=== PATIENT | male | born 1955 | race Caucasian/White ===

== ENCOUNTER → 2020-05-11 08:58 | Outpatient (CLI) | payer BC | END | disposition home or self-care (01) | LOC: D.HCCARDIO 08:58 | PROVIDERS: ATTEND Internal Medicine Cardiovascular Disease | DX: I25.10 Atherosclerotic heart disease of native coronary artery without angina pectoris (principal) ==

== ENCOUNTER 2020-05-25 06:39 | Day surgery (SDC) | payer BC ==
[~2020-05-25] VITALS: Ht 170.2 cm; Wt 117.3 kg
--- NOTE | ~2020-05-25 | HEMODYNAMI ---
PATIENT:XUAN SHERWOOD MEDICAL RECORD: [id number] : 59 LOCATION:D.CAT ADMISSION DATE: 05/25/20 Generatedon:05/25/20208:30 Patient name: XUAN SHERWOOD Patient #: [id number] SSN: DO B: 1955 Date of study: 05/25/2020 Page: Of Hemodynamic Procedure Report Patient Data Patient Demographics Procedure consent was obtained First Name: XUAN Gender: Male Last Name: PRESLEY : 1955 Middle Initial: M Age: 64 year(s) Patient #: [id number] Race: Unknown Additional ID: [id number] Contact details [address]: [address] [place] [address] State: [place] City: [place] Zip code: [address] Past Medical History Performed procedures and imaging results Date Procedure Procedure Results Comments Stress testing Positive->Intermediate with SPECT MPI risk History of disease Date Diagnosis Comments CAD Allergies: No known allergies Admission Admission Data Admission Date: 05/25/2020 Admission Time: 6:39 Arrival Date: 05/25/2020 Arrival Time: 0:00 Height (in.): 66.93 BSA: 2.25 (m2) Height (cm.): 170 BMI: 40.48 (kg/m2) Weight (lbs.): 257.94 Weight (kg.): 117 Lab Results Lab Result Date: 05/25/2020 Lab Result Time: 0:00 Biochemistry Name Units Result Min Max BUN mg/dl 16 --(---*)-- 7 18 Creatinine mg/dl 0.9 --(-*--)-- 0.6 1.3 eGFR ml/min 90 --(*---)-- 90 120 NONAFRICAN CBC Name Units Result Min Max Hematocrit % 46.1 --(-*--)-- 42 54 Hemoglobin g/dl 15.3 --(-*--)-- 13.5 17.5 Procedure Procedure Types Cath Procedure Diagnostic Procedure C LHC w/Coronaries Sedation Charges Moderate Sedation up to 15 minutes Procedure Description Procedure Date Procedure Date: 05/25/2020 Procedure Start Time: 8:13 Procedure End Time: 8:27 Procedure Staff Name Function Alex Gonzalez MD Performing Physician Ken Torres RN Nurse Liudmila Kincaid RT Scrub Maggieklarissa Brown RT Monitor Procedure Data Cath Procedure Fluoroscopy Diagnostic fluoroscopy Total fluoroscopy Time: 2.6 time: 2.6 min min Diagnostic fluoroscopy Total fluoroscopy dose: 710 dose: 710 mGy mGy Contrast Material Contrast Material Type Amount (ml) Isovue 300 67 Entry Location Entry Primary Successful Side Size Upsize Upsize Entry Closure Seals ccessful Closure Location (Fr) 1 (Fr) 2 (Fr) Remarks Device Remarks Radial Right 6 Fr Mechanical artery Short Compression Estimated blood loss: 5 ml Diagnostic catheters Device Type Used For End Catheter Placement DIAGNOSTIC Ish 110cm Procedure 5Fr catheter ([id number]) Procedure Complications No complications Procedure Medications Medication Administration Route Dosage 0.9% NaCl I.V. 100 ml/hr Oxygen etCO2 Nasal cannula 2 l/min Heparin Flush Bag added to field 2 bags (1000units/500ml NS) Lidocaine 2% added to field 20 Radial Cocktail added to field 1 syringe (Verapamil 2mg/Nitro 400mcg/Heparin 1500units) Versed I.V. 2 mg Fentanyl I.V. 50 mcg Benadryl I.V. 50 mg Radial Cocktail I.A. 1 syringe (Verapamil 2mg/Nitro 400mcg/Heparin 1500units) Hemodynamics Rest BSA: 2.25 (m2) HGB: 15.3 (g/dl) O2 Consumption: Estimated: 261.71 (ml/min) O2 Co nsumption indexed: Estimated:116.32 (ml/min/m) Heart Rate: 68 (bpm) Pressure Samples Time Site Value (mmHg) Purpose Heart Use Rate(bpm) 8:16 LV 151/3,9 Snapshot 87 8:17 LV 109/31,20 Snapshot 93 Gradients Valve Time Site Site Mean SEP/DFP Peak To Heart Use 1 2 (mmHg) (sec/min) Peak Rate (mmHg) (bpm) Aortic 8:17 LV AO 89 Snapshots Pre Cath Intra NCS Post Cath Vital Signs Time Heart Resp SPO2 etCO2 NIBP (mmHg) Rhythm Pain Sedation Rate (ipm) (%) (mmHg) Status Level (bpm) 7:56:21 67 22 100 38.8 154/65(134) NSR 0 (11) 10(A) , No pain 8:00:56 77 21 99 41.1 154/70(108) NSR 0 (11) 10(A) , No pain 8:05:20 73 15 98 47.8 139/83(124) NSR 0 (11) 10(A) , No pain 8:09:46 80 16 97 47 141/70(110) NSR 0 (11) 10(A) , No pain 8:14:12 79 13 97 38.1 136/66(99) NSR 0 (11) 9(A) , No pain 8:18:32 83 18 96 42.6 117/51(86) NSR 0 (11) 9(A) , No pain 8:22:55 84 16 97 38.8 123/57(87) NSR 0 (11) 9(A) , No pain 8:27:19 76 16 98 43.3 127/60(90) NSR 0 (11) 9(A) , No pain Medications Time Medication Route Dose Verified Delivered Reason Notes Effectiveness by by 8:03:19 0.9% NaCl I.V. 100 Ken Ken Per ml/hr Melissa Torres physician RN RN 8:03:29 Oxygen etCO2 2 l/min Ken Ken for low 02 Nasal Lorigan Lorigan sats cannula RN RN 8:03:39 Heparin Flush added 2 bags Ken Ken used for Bag to Lorigan Lorigan procedure (1000units/500ml field RN RN NS) 8:03:50 Lidocaine 2% added 20ml Ken Ken for local to vial Lorigan Lorigan anesthetic RN RN 8:04:00 Radial Cocktail added 1 Ken Ken used for (Verapamil to syringe Lorigan Lorigan procedure 2mg/Nitro field RN RN 400mcg/Heparin 1500units) 8:10:56 Versed I.V. 2 mg Ken Ken for sedation Melissa Torres RN RN 8:11:05 Fentanyl I.V. 50 mcg Ken Ken for sedation Melissa Torres RN RN 8:12:37 Benadryl I.V. 50 mg Ken Ken Per Melissa Torres physician RN RN 8:16:03 Radial Cocktail I.A. 1 Ken Alex for (Verapamil syringe Melissa Gonzalez MD vasodilation 2mg/Nitro RN 400mcg/Heparin 1500units) Procedure Log Time Note 7:32:49 Informed consent obtained and on chart 7:33:23 Procedure Status Elective Heart Cath (OP). 7:33:24 Time tracking: Regular hours (M-F 7:00 - 5:00) 7:33:27 Plan of Care:Hemodynamics will remain stable., Cardiac rhythm will remain stable., Comfort level will be maintained., Respiratory function will remain adequate., Patient/ family verbilizes understanding of procedure., Procedure tolerated without complication., Recovers from procedure without complications.. 7:34:38 H&P Date Dictated: 05/25/2020 H&P Addendum completed by physician on day of procedure. (MUST COMPLETE FOR ALL OUTPATIENTS), New H&P dictated by physician.. 7:35:21 Patient Weight : 257.94 lbs 7:35:27 Arrival Date: 05/25/2020 12:00:00 AM 7:36:59 Patient allergic to No known allergies 7:41:47 Ken Torres RN sent for patient. Start room use. 7:45:59 Patient received from Pre/Post Procedure Room to CCL 1 Alert and oriented. Tansferred to table in Supine position. 7:46:01 Warm blankets applied, and светлана hugger turned on for patient comfort. 7:46:02 Correct patient and procedure confirmed by team. 7:46:02 ECG and BP/O2 sat monitors applied to patient. 7:54:58 Vital chart was started 7:55:40 Baseline sample Acquired. 7:55:43 Rhythm: sinus rhythm 7:55:44 Full Disclosure recording started 7:55:45 Pre-procedure instructions explained to patient. 7:55:45 Pre-op teaching completed and patient verbalized understanding. 7:55:47 Family in patients room. 7:55:48 Patient NPO since Midnight. 7:55:54 Is the patient allergic to Iodine/contrast media? No. 7:55:55 Is patient on blood thinner?No 7:55:56 Patient diabetic? No. 7:56:03 Previous problem with sedation/anesthesia? No ? 7:56:04 Snore? Yes 7:56:10 Sleep apnea? Yes 7:56:13 Deviated septum? No 7:56:15 Opens mouth fully? Yes 7:56:16 Sticks out tongue? Yes 7:56:20 Airway obstruction? No ? 7:56:21 Dentures? No ? 7:56:23 Pre procedure: right dorsailis pedis pulse 1+ Palpable, but thready & weak; easily obliterated 7:56:25 Modified Hesham's test Ulnar < 7 seconds 7:56:27 Patient pain scale 0/10 ?. 7:56:30 IV patent on arrival in left hand with 0.9% NaCl at [facility]. 7:56:36 Right Radial & Right Groin area was prepped with chlora-prep and draped in sterile fashion 7:56:36 Alarms reviewed by R. N. 7:56:37 Sharps counted by scrub and verified by R.N. 7:57:36 NEEDLE Cook 21G 4cm Radial ([id number]) opened to sterile field. 7:57:42 Use device set Radial Dx or PCI 7:57:43 ACIST Syringe (83438) opened to sterile field. 7:57:45 Bag Decanter (2002S) opened to sterile field. 7:57:45 ACIST Hand Control (60017) opened to sterile field. 7:57:46 ACIST Manifold (92010) opened to sterile field. 7:57:46 Tegaderm 4 x 4 (1626W) opened to sterile field. 7:57:48 Medline Cath Pack ([id number]) opened to sterile field. 7:57:48 MBrace Wrist Support ([id number]) opened to sterile field. 7:57:50 EMERALD Guide Wire (725-373) opened to sterile field. 7:57:50 SHEATH 6FR RAIN ([id number]) opened to sterile field. 8:01:39 Patient Height : 66.93 inches 8:03:19 0.9% NaCl 100 ml/hr I.V. was administered by Ken Torres RN; Per physician; Verbal order read back and verified. 8:03:29 Oxygen 2 l/min etCO2 Nasal cannula was administered by Ken Torres RN; for low 02 sats; Verbal order read back and verified. 8:03:39 Heparin Flush Bag (1000units/500ml NS) 2 bags added to field was administered by Ken Torres RN; used for procedure; Verbal order read back and verified. 8:03:50 Lidocaine 2% 20ml vial added to field was administered by Ken Torres RN; for local anesthetic; Verbal order read back and verified. 8:04:00 Radial Cocktail (Verapamil 2mg/Nitro 400mcg/Heparin 1500units) 1 syringe added to field was administered by Ken Torres RN; used for procedure; Verbal order read back and verified. 8:09:21 Zero performed for pressure channel P1 8::22 Zero performed for pressure channel P1 8::23 Zero performed for pressure channel P1 8:: Zero performed for pressure channel P1 8::37 --------ALL STOP TIME OUT------ 8:10:38 Final Timeout: patient, procedure, and site verified with staff and physician. All members of the team are in agreement. 8:10:42 Right Radial & Right Groin site verified by team. 8:10:46 Fire Safety Assessment: A--An alcohol-based skin anteseptic being used preoperatively., C--Open oxygen or nitrous oxide is being used., D--An ESU, laser, or fiber-optic light is being used. 8:10:51 Physical assessment completed. ASA score P 2 - A patient with mild systemic disease as per Alex Gonzalez MD. 8:10:56 Versed 2 mg I.V. was administered by Ken Torres RN; for sedation; Verbal order read back and verified. 8:11:03 Sedation plan: IV Moderate Sedation Medication:Versed, Fentanyl 8:11:05 Fentanyl 50 mcg I.V. was administered by Ken Torres RN; for sedation; Verbal order read back and verified. 8:12:03 1) 90+ Normal kidney functon but urine findings or structural abnormalities or genetic trait point to kidney disease. 8:12:04 Maximum allowable contrast dose (3.7 X eGFR X 0.75)250 ml. 8:12:08 Procedure started. 8:12:37 Benadryl 50 mg I.V. was administered by Ken Torres RN; Per physician; Verbal order read back and verified. 8:12:56 Stress Test: yes; abnormal INFERIOR 8:13:03 Local anesthetic to right radial artery with Lidocaine 2% by Alex Gonzalez MD.INITIAL ACCESS ONLY 8:14:43 A 6 Fr Short sheath was inserted into the Right Radial artery 8:15:39 A DIAGNOSTIC Ish 110cm 5Fr catheter ([id number]) was advanced over the wire and used for Procedure. 8:16:03 Radial Cocktail (Verapamil 2mg/Nitro 400mcg/Heparin 1500units) 1 syringe I.A. was administered by Alex Gonzalez MD; for vasodilation; Verbal order read back and verified. 8:16:10 LV gram done using CRAWFORD 8:16:13 Injector settings: Ml/sec: 5, Volume: 15, 8:16:51 LV hemodynamics recorded. 8:16:59 EF : 60 % 8:18:05 RCA angiography performed. 8:19:37 LCA angiography performed. 8:23:00 Catheter removed. 8:23:06 ACCDominant side:Left 8:23:39 Procedure ended.(Physican Out) 8:24:32 Lab Result : BUN 16 mg/dl 8:24:32 Lab Result : Hemoglobin 15.3 g/dl 8:24:32 Lab Result : Hematocrit 46.1 % 8:24:32 Lab Result : Creatinine 0.9 mg/dl 8:24:32 Lab Result : eGFR NONAFRICAN 90 ml/min 8:25:02 ZEPHYR REGULAR TR BAND (044851) opened to sterile field. 8:25:12 Sheath removed intact; hemostasis achieved with Mechanical Compression to the Right Radial artery. 8:25:17 Fluoroscopy time 02.60 minutes. 8:25:21 Fluoroscopy dose: 710 mGy 8:25:21 Flurop Dose total: 710 8:25:28 Dose Area Product 32883 mGy/cm. 8:25:40 Contrast amount:Isovue 300 67ml. 8:25:43 Maximum allowable dose exceeded? No. 8:25:44 Sharps counted by scrub and verified by R.N. 8:25:46 [place] band inflated with 10cc of air. 8:25:50 Post-procedure physical assessment completed. ASA score P 2 - A patient with mild systemic disease as per Alex Gonzalez MD. 8:25:53 Post procedure rhythm: sinus rhythm 8:25:57 Estimated blood loss: 5 ml 8:26:00 Post procedure instruction explained to patient.Patient verbalizes understanding. 8:26:00 Patient needs reinforcement of post procedure teaching. 8:26:52 Procedure type changed to Cath procedure, Diagnostic procedure, LHC, LHC w/Coronaries, Sedation Charges, Moderate Sedation up to 15 minutes 8:27:06 Procedure and supply charges have been captured, reviewed, submitted and are correct. 8:27:09 Procedure Complication : No complications 8:27:12 Vital chart was stopped 8:27:13 [facility] Findings: mild to moderate CAD (<70%) 8:27:14 Operative report dictated upon procedure completion. 8:27:14 See physician's report for complete and final results. 8:27:19 Report given to Pre/Post Procedure Room. 8:27:22 Patient transfered to Pre/Post Procedure Room with Bed. 8:27:24 Procedure ended. 8:27:24 Full Disclosure recording stopped 8:27:27 End room use (Document Last) Device Usage Item Name Manufacture Quantity Catalog Hospital Part Current Minima l Lot# / Number Charge Number Stock Stock Serial# Code ACIST Acist 1 96243 [id number] 188000 [id number] 20 Syringe Medical (64133) Systems Inc Bag Microtek 1 814553 12545 762266 5 Decanter Medical Inc. () ACIST Hand Acist 1 96154 265941 190130 217728 5 Control Medical (07049) Systems Inc ACIST Acist 1 05070 029047 070210 381374 5 Manifold Medical (15851) Systems Inc Tegaderm 4 3M 1 1626W 443729 719892 065335 5 x 4 (1626W) Medline Medline 1 [id number] 472820 72719 283048 5 Cath Pack ([id number]) MBrace Advanced 1 140-0250-00 279792 25441 694665 5 Wrist Vascular Support Dynamics ([id number]) EMERALD Cardinal 1 502-455 308896 299415 374439 5 Guide Wire Health (502455) SHEATH 6FR Cardinal 1 6430749 000105 9718916 744043 5 [facility] Health (4363559) DIAGNOSTIC Terumo 1 405023 371076 627362 890016 5 Ish 110cm 5Fr catheter (489677) NEEDLE Kipo Medical 1 S21689 410996 233471 978538 5 21G 4cm Radial (Z98688) ZEPHYR Cardinal 1 081930 952301 7734952 169571 5 REGULAR TR Health BAND (700898) Signature Audit [place] Stage Time Signature Unsigned Intra-Procedure 05/25/2020 Maggie Brown 8:28:28 AM RT(R) Intra-Procedure 05/25/2020 Ken 8:29:56 AM Melissa CID Intra-Procedure 05/25/2020 Alex Gonzalez MD 8:30:45 AM [facility] [address] [place] [place] [address]
[2020-05-25] MEDS ORDERED: LOTREL PO (07:00)
[2020-05-25] MEDS ORDERED: BAYER CHEWABLE81 MG PO (07:00)
[2020-05-25] MEDS ORDERED: COREG12.5 MG PO (07:00)
[2020-05-25 07:17] VITALS: BP 166/64; Ht 170.2 cm; Wt 117.3 kg
[2020-05-25 07:25] LABS: BASOPHILS 0.7 % (0-2); HEMATOCRIT 46.1 % (42.0-54.0); HEMOGLOBIN 15.3 g/dL (13.5-17.5); IMMATURE GRANULOCYTES 0.2 % (0-5); LYMPHOCYTES 34.8 % (15-50); MCH 28.9 pg (26.0-34.0); MCHC 33.2 g/dL (31.0-37.0); MCV 87.1 fL (80.0-100.0); MEAN PLATELET VOLUME 9.6 fL (7.4-10.4); MONOCYTES 9.3 % (2-11); PLATELET COUNT 164 10x3/uL (130-400); RBC 5.29 10x6/uL (4.20-6.10); RDW 14.1 % (11.5-14.5); WBC 8.1 10x3/uL (4.8-10.8)
[2020-05-25 08:17] LABS: CALC OSMOLALITY 276 mosm/kg (275-300); CHLORIDE - SERUM 105 mmol/L (98-107); CREATININE - SERUM 0.9 mg/dL (0.6-1.3); GLUCOSE 99 mg/dL (74-106); POTASSIUM - SERUM 4.2 mmol/L (3.5-5.1); SODIUM 138 mmol/L (136-145); UREA NITROGEN 16 mg/dL (7-18); eGFR NON AFRICAN AMERICAN > 90 mL/min (90-120)
[2020-05-25 08:23] LABS: ALT (SGPT) 69 U/L (10-68); CHOL - HDL RATIO 4.4 ratio (2.3-4.9); CHOLESTEROL, TOTAL 206 mg/dL (0-200); HDL CHOLESTEROL 47 mg/dL (32-96); LDL CHOLESTEROL 136 mg/dL (0-100); LDL-HDL RATIO 2.9 ratio (1.5-3.5); TRIGLYCERIDE 116 mg/dL (30-200)
--- NOTE | 2020-05-25 08:43 | NUR ---
PT RECEIVED VIA STRETCHER FROM [employer] FOR RECOVERY. PT AWAKE BUT DROWSY, DENIES PAIN OR NEEDS AT THIS TIME. IV PATENT INFUSING VIA ORDERS. PT PLACED ON CARDIAC MONITORS, HR NSR RATE 78, BP 131/78, RR 20, SAT 96 ON ROOM AIR. ZYPHER BAND AND IMMOBILIZER TO R WRIST/ARM, NO S/S HEMATOMA OR BLEEDING NOTED. PT INSTRUCTED NOT TO USE ARM, HE VERBALIZED UNDERSTANDING. ARM PINK AND WARM, CAP REFILL BRISK. CALL LIGHT IN REACH, AT BS.
--- NOTE | 2020-05-25 09:00 | NUR ---
PT RESTING W/O COMPLAINTS. ZBAND AND IMMOBILIZER IN PLACE, NO S/S HEMATOMA NOTED. VSS AT PRESENT. PT MORE AWAKE, DRINKING COFFEE. CALL LIGHT IN REACH, AT BS
--- NOTE | 2020-05-25 09:45 | NUR ---
4CC AIR REMOVED FROM Z BAND, NO BLEEDING OR S/S HEMATOMA NOTED. PT DENIES PAIN OR NEEDS AT THIS TIME. TOLERATING PO SOLIDS AND FLUIDS. CALL LIGHT IN REACH, REMAINS AT BS.
--- NOTE | 2020-05-25 10:20 | NUR ---
2 ADD'L CC AIR REMOVED FROM Z BAND, NO BLEEDING OR S/S HEMATOMA NOTED. PT DENIES PAIN OR NEEDS AT THIS TIME. DR BHATTI WAS IN ROOM DISCUSSED W PT AND PROCEDURE RESULTS AND PLAN OF CARE. NO NEW ORDERS RECEIVED. VSS. CALL LIGHT IN REACH
--- NOTE | 2020-05-25 10:46 | NUR ---
DISCHARGE INSTRUCTIONS REVIEWED W PT AND , BOTH VERBALIZED UNDERSTANDING. IV REMOVED W CATH INTACT. MONITORS REMOVED. ZBAND AND IMMOBILIZER IN PLACE, PT UP TO DRESS FOR DISCHARGE
--- NOTE | 2020-05-25 10:53 | NUR ---
ZBAND REMOVED, NO BLEEDING NOTED. 2X2 AND SM TEGADERM DRESSING APPLIED. PT DECLINES WEARING IMMOBILIZER. PT AMBULATED TO BR, VOIDING W/O DIFFICULITY.
--- NOTE | 2020-05-25 11:00 | NUR ---
PT DISCHARGED VIA WC TO WAITING IN PRIVATE VEHICLE. PT HAD ALL BELONGINGS AND DISCHARGE PAPERWORK
== END 2020-05-25 11:00 | disposition home or self-care (01) ==
LOC: D.CATH 06:39
PROVIDERS: ATTEND Internal Medicine Cardiovascular Disease
DX: I25.10 Atherosclerotic heart disease of native coronary artery without angina pectoris (principal); R94.39 Abnormal result of other cardiovascular function study; I10 Essential (primary) hypertension